=== PATIENT | female | born 1995 | race Caucasian/White ===

== ENCOUNTER → 2019-10-10 | Outpatient (CLI) | payer BC | LOC: MC.RAD 09:45 | DX: N60.01 Solitary cyst of right breast (principal) ==

== ENCOUNTER → 2020-08-11 | Outpatient (CLI) | payer BC ==
[~2020-08-11] MED LIST: CRYSELLE 30 MCG1 TAB PO
== END ==
LOC: MC.RAD 12:58
DX: N60.11 Diffuse cystic mastopathy of right breast (principal); N64.59 Other signs and symptoms in breast

== ENCOUNTER 2020-09-13 04:48 | Emergency (ER) | payer BC ==
[~2020-09-13] VITALS: Ht 162.6 cm; Wt 77.3 kg
[2020-09-13 04:49] VITALS: TEMP 98
[2020-09-13 05:18] LABS: BASO % 0.5 % (0.0-2.0); EOS # 0.2 (0.0-0.7); EOS % 2.9 % (0-4.0); GRAN # 3.9 (1.4-6.5); GRAN % 48.9 % (42.2-75.2); HEMATOCRIT 47.4 % (37.0-47.0); HEMOGLOBIN 16.7 g/dl (12.5-16.0); LYMPH # 3.3 (1.2-3.4); MEAN CELL VOLUME 90 fl (80.0-100.0); MEAN CORPUSCULAR HEMOGLOBIN 32 pg (27.0-31.0); MEAN CORPUSCULAR HGB CONC 35 g/dl (33.0-37.0); MEAN PLATELET VOLUME 10.4 fl (7.4-10.4); MONO # 0.5 (0.1-0.6); MONO % 6.3 % (1.7-9.3); PLATELET COUNT 238 K/mm3 (130-400); RED BLOOD COUNT 5.26 M/mm3 (4.10-5.30)
[2020-09-13] MEDS ORDERED: CRYSELLE 30 MCG1 TAB PO (05:35)
[2020-09-13 06:00] LABS: ALBUMIN 3.7 gm/dL (3.5-5.0); BILIRUBIN,TOTAL 0.5 mg/dL (0.0-1.0); CALCIUM 8.5 mg/dL (8.4-10.2); CREATININE, serum 0.77 (0.52-1.25); POTASSIUM 4.4 mmol/L (3.4-5.0)
[2020-09-13 07:53] VITALS: BP 120/86; PULSE 65
== END 2020-09-13 07:56 | disposition home or self-care (01) ==
LOC: COL.ER 04:48
PROVIDERS: Emergency Medicine
DX: R55 Syncope and collapse (principal); R25.1 Tremor, unspecified
CPT/HCPCS: J7030; Q9967